=== PATIENT | male | born 1995 | race Caucasian/White ===

== ENCOUNTER 2017-03-03 11:33 | Emergency (ER) | payer MEDICAID ==
[2017-03-03] MEDS ORDERED: NS 1,000 ML IV ONE (12:08)
[2017-03-03] MEDS ORDERED: ONDANSETRON 4 MG/2 ML VIAL IVP ONE (12:08)
--- NOTE | 2017-03-03 12:17 | EDPHY ---
H & P Smoking Status: Current every day smoker Time Seen by Provider: 03/03/17 11:44 HPI/ROS: CHIEF COMPLAINT: Headache, vomiting, abdominal pain HISTORY OF PRESENT ILLNESS: 22-year-old male presents to the emergency department with 4 days of vomiting. He states he is unable to keep anything down. He has had problems with vomiting in the past although intermittently. He describes diffuse abdominal cramping. He developed sudden onset of posterior headache 2 days ago while he was lying in his tent. He denies any reported trauma or injury. He has a history of migraine headaches although typically those are more in the frontal area of his head. This feels very atypical and abnormal for him. Pain has been persistent and constant since it occurred abruptly 2 days ago. He denies fevers or chills. Denies neck or back pain. Denies pain in upper lower extremities. No diarrhea. No hematemesis. REVIEW OF SYSTEMS: Constitutional: No fever, no chills. Eyes: No double or blurry vision. ENT: No sore throat. Respiratory: No cough, no shortness of breath. Cardiac: No chest pain. Gastrointestinal: Vomiting as above. No abdominal pain or diarrhea. Genitourinary: No dysuria. Musculoskeletal: No neck or back pain. Skin: No rashes. Neurological: Headache as above (SamreenJannette M) Past Medical/Surgical History: Multiple concussions, migraine headaches (Samreen,Jannette M) Social History: Homeless (Samreen,Jannette M) Physical Exam: General Appearance: Alert, no distress. Afebrile. No apparent distress. Mentating normally and answering questions appropriately. Eyes: Pupils equal and round. Extraocular motions are all intact. ENT: Mouth: Mucous membranes moist. Respiratory: No wheezing, rhonchi, or rales, lungs are clear to auscultation. Cardiovascular: Regular rate and rhythm. Gastrointestinal: Abdomen is soft and nontender, no masses, no rebound or guarding, bowel sounds normal. Neurological: Alert and oriented x 3, cranial nerves II through XII grossly intact Skin: Warm and dry, no rashes. Musculoskeletal: Nontender to palpate along the cervical, thoracic or lumbar spine. Neck is supple. Extremities: Full range of motion and no peripheral edema. Psychiatric: Patient is oriented X 3, there is no agitation. (Roxannain,Jannette M) Constitutional: Initial Vital Signs Temperature (C) 36.7 C 03/03/17 11:33 Heart Rate 72 03/03/17 11:33 Respiratory Rate 16 03/03/17 11:33 Blood Pressure 119/64 03/03/17 11:33 O2 Sat (%) 97 03/03/17 11:33 O2 Delivery Mode Room Air Allergies/Adverse Reactions: No Known Allergies Allergy (Unverified 03/03/17 11:38) Home Medications: Medication Instructions Recorded Ondansetron Odt [Zofran Odt] 4 mg PO Q4PRN #8 tab 03/03/17 Medical Decision Making ED Course/Re-evaluation: CT imaging of the brain revealed no intracranial bleeding, however the left hemisphere of the cerebellum appeared abnormal. This was reported to me by Dr. Tono Webster, radiologist. He recommended obtaining MRI without contrast of the brain. MRI of the brain was normal. The abnormality seen in the left hemisphere of the cerebellum is likely from artifact. MRI of the brain is normal. Patient was given 10 mg of Decadron and 30 mg of Toradol IV. Patient was resting comfortably. He was reexamined multiple times. Upon discharge the patient had resolution of his headache. He was no longer feeling nauseous. He was tolerating p. o. fluids and is requesting to be discharged home. His mother is at bedside now and states that there is a long family history of migraine headaches. She states that she has had similar headaches like this as well. Patient however has never had a formal neurologic evaluation and therefore was referred to neurologist. (Jannette Jolley) Differential Diagnosis: Headache including but not limited to subarachnoid hemorrhage, migraine headache , tension headache and infectious causes such as meningitis, pharyngitis and sinusitis. (Jannette Jolley) Other Provider: The patient was evaluated and managed by the physician assistant to the ceo. I have reviewed this chart and I agree with the findings and plan of care as documented , as indicated by my signature. I am the secondary supervising physician. ( Laverne Alvarado) - Data Points Laboratory Results: Laboratory Results 03/03/17 11:45 03/03/17 11:45 Medications Given: Discontinued Medications Dexamethasone (Decadron Injection) 10 mg IVP EDNOW ONE Stop: 03/03/17 13:46 Last Admin: 03/03/17 13:54 Dose: 10 mg Hydromorphone HCl (Dilaudid) 1 mg IVP EDNOW ONE Stop: 03/03/17 12:59 Last Admin: 03/03/17 13:02 Dose: 0.5 mg Sodium Chloride (Ns) 1,000 mls @ 0 mls/hr IV ONCE ONE PRN Reason: Wide Open Stop: 03/03/17 12:09 Last Admin: 03/03/17 12:28 Dose: 1,000 mls Ketorolac Tromethamine (Toradol) 30 mg IVP EDNOW ONE Stop: 03/03/17 13:46 Last Admin: 03/03/17 13:54 Dose: 30 mg Ondansetron HCl (Zofran) 4 mg IVP EDNOW ONE Stop: 03/03/17 12:09 Last Admin: 03/03/17 12:28 Dose: 4 mg Departure - Departure Disposition: Home, Routine, Self-Care Clinical Impression: Headache, Vomiting Condition: Good Instructions: Acute Headache (ED), Acute Nausea and Vomiting (ED), Abdominal Pain (ED) Additional Instructions: You should follow up with a neurologist to discuss her ongoing headaches. Clear liquids and slowly advance diet as tolerated. Return to the emergency department if you develop recurring headache, vomiting, altered mental status, or if you feel worse in any way. Referrals: Galdino Doss DO [Doctor of Osteopathy] - As per Instructions (Neurologist on- call) Prescriptions: Ondansetron Odt [Zofran Odt] 4 mg PO Q4PRN #8 tab
[2017-03-03 12:23] LABS: % IMMATURE GRANULYOCYTES 0.3 % (0.0-1.1); ABSOLUTE IMMATURE GRANULOCYTES 0.02 10^3/uL (0.00-0.10); ADD DIFF? NO; ADD MORPH? NO; ADD SCAN? YES; FRAGMENT RBC FLAG 0 (0-99); HEMATOCRIT 44.7 % (40.0-51.0); HEMOGLOBIN 15.6 g/dL (13.7-17.5); LEFT SHIFT FLG 0 (0-99); LIPEMIA HEMOLYSIS FLAG 90 (0-99); MEAN CELL HEMOGLOBIN 31.3 pg (27.9-34.1); MEAN CELL HEMOGLOBIN CONCENTR. 34.9 g/dL (32.4-36.7); MEAN CELL VOLUME 89.6 fL (81.5-99.8); MEAN PLATELET VOLUME 10.3 fL (8.7-11.7); PLATELET CLUMPS FLAG 30 (0-99); PLATELET COUNT 214 10^3/uL (150-400); RED BLOOD CELL COUNT 4.99 10^6/uL (4.40-6.38); RED CELL DISTRIBUTION WIDTH 12.6 % (11.5-15.2)
[2017-03-03 12:24] LABS: ATYPICAL LYMPHOCYTE FLAG 100 (0-99)
[2017-03-03 12:26] LABS: ANION GAP 11 mEq/L (8-16); CALCIUM 9.9 mg/dL (8.5-10.4); CARBON DIOXIDE 28 mEq/l (22-31); CHLORIDE 104 mEq/L (97-110); CREATININE 0.8 mg/dL (0.7-1.3); GLOMERULAR FILTRATION RATE > 60; GLUCOSE 103 mg/dL (70-100); POTASSIUM 4.1 mEq/L (3.5-5.2); SODIUM 143 mEq/L (134-144)
[2017-03-03] MEDS ORDERED: HYDROmorphONE/DILAUDID 1 MG/ML SYR IVP ONE (12:58)
[2017-03-03 13:03] LABS: SCAN POSITIVE
[2017-03-03 13:08] LABS: LARGE PLATELETS PRESENT; PLATELET ESTIMATE ADEQUATE (ADEQ)
[2017-03-03] MEDS ORDERED: KETOROLAC 30 MG/1 ML SDV IVP ONE (13:45)
[2017-03-03] MEDS ORDERED: DEXAMETHASONE 10 MG/ML VIAL IVP ONE (13:45)
[2017-03-03 13:56] VITALS: TEMP 98.2
[2017-03-03 15:43] VITALS: BP 99/74; PULSE 65; RESP 16; O2SAT 97
== END 2017-03-03 15:42 | disposition home or self-care (01) ==
DX: R51 Headache (principal); R11.10 Vomiting, unspecified; F17.200 Nicotine dependence, unspecified, uncomplicated
CPT/HCPCS: 96374; J1170; J1885; J2405